=== PATIENT | female | born 1990 | race American Indian/Alaskan Native ===

== ENCOUNTER 2017-07-04 17:22 | Emergency (ER) | payer MEDICAID ==
[2017-07-04 19:04] LABS: Hematocrit 36.9 % (30.3-42.9); Hemoglobin 12.4 gm/dl (10.1-14.3); Mean Corpuscular HGB Conc 34 % (30-34); Mean Corpuscular Hemoglobin 30 pg (28-32); Mean Corpuscular Volume 91 fl (79-97); Platelet Count 306 K/mm3 (140-440); Red Blood Count 4.06 M/mm3 (3.65-5.03); Red Cell Distribution Width 14.3 % (13.2-15.2); White Blood Count 11.4 K/mm3 (4.5-11.0)
[2017-07-04 19:15] LABS: Bilirubin,Urine NEG (Negative); Blood,Urine NEG (Negative); Ketones,Urine NEG (Negative); Leukocyte Esterase,Urine SM (Negative); Mucus,Urine FEW /HPF; Nitrite,Urine NEG (Negative); Protein,Urine <15 mg/dL mg/dL (Negative); Urobilinogen,Urine < 2.0 mg/dL (<2.0)
[2017-07-04 19:17] LABS: Anion Gap 18 mmol/L; BUN/Creatinine Ratio 14; Blood Urea Nitrogen 13 mg/dL (7-17); Carbon Dioxide 25 mmol/L (22-30); Chloride 100.3 mmol/L (98-107); Glucose 81 mg/dL (65-100); Sodium 139 mmol/L (137-145)
[2017-07-04] MEDS ORDERED: TYLENOL PO ONE (22:06)
[2017-07-04] MEDS ORDERED: TYLENOL ONE (22:10)
--- NOTE | 2017-07-04 22:11 | Ultrasound Report ---
FINAL REPORT PROCEDURE: US OB < = 14 WEEKS FETUS TECHNIQUE: Real-time transabdominal sonography of the uterus, placenta, amniotic fluid, adnexa, and fetus was performed with image documentation. Measurements were obtained to determine age/size. M-mode Doppler was used to document heartbeat. CPT 65257 HISTORY: vaginal bleed,pain with COMPARISON: No prior studies are available for comparison. FINDINGS: Limited examination. There is an intrauterine fluid-filled sac-like structure which could be an early gestational sac. Mean sac diameter is 2.68 centimeters which would correspond to estimated gestational age is 7 weeks and 5 days and estimated date of delivery is 02/15/2018. No pole, yolk sac or cardiac activity is demonstrated. Followup is indicated. Uterus measures 7.8 x 4.6 by 4.7 centimeters. The ovaries are not identified. There is no free pelvic fluid. IMPRESSION: Possible early at 7 weeks and 5 days. No pole is demonstrated. Transvaginal ultrasound may be helpful.
--- NOTE | 2017-07-04 22:15 | Ultrasound Report ---
FINAL REPORT PROCEDURE: US OB TRANSVAGINAL TECHNIQUE: Real-time transvaginal sonography of the uterus, placenta, amniotic fluid, adnexa, and fetus was performed with image documentation. Measurements were obtained to determine age/size. M-mode Doppler was used to document heartbeat. CPT 16285 HISTORY: vaginal bleed,pain with COMPARISON: 07/04/2017 FINDINGS: CRL: 5.1mm, which corresponds to a gestational age of: 6weeks, 2 days. Yolk Sac: Normal. Embryonic Cardiac Activity: 109 beats per minute Gestational Sac: Mean sac diameter is 26.8 millimeters corresponding to estimated gestational age is 7 weeks and 5 days Right Ovary: Hemorrhagic corpus luteal cyst measuring 2.3 centimeters. Left Ovary: Normal. Estimated delivery date: 02/20/2018 Comment: Complete anatomic survey at 18-20 weeks suggested. IMPRESSION: 1. Single living intrauterine gestation at approximately 7 weeks 2. EDC by US 02/20/2018.
[2017-07-05] MEDS ORDERED: TYLENOL PO ONE (04:13)
--- NOTE | 2017-07-05 04:16 | Emergency Department Report ---
ED Back Pain/Injury HPI - General Chief Complaint: Back Pain/Injury Stated Complaint: PREG, BACK PAIN, SPOTTING Time Seen by Provider: 07/05/17 03:28 Source: patient Limitations: No Limitations - History of Present Illness Initial Comments: PT HAS H/O LOW ABACK PAIN AND MUSCLE SPASMS HER TODAY WITH THE SAME. PAIN IS IN THE SAME AREA WHERE IT ALWAYS IS. SHE IS 6 WEEKS PREGNANCT AND HAS NOT SEEN A DR YET, SHE EXPERIENCED SOME SPOTTING DAYS AGO BUT THAT HAS STOPPED. MD Complaint: back pain -: hour(s) (8 HRS AGO) Similar Symptoms Previously: Yes Place: home Severity: moderate Severity scale (0 -10): 5 Quality: dull, aching Consistency: constant Improves With: supine Worsens With: movement Context: turning/twisting, bending Associated Symptoms: denies other symptoms. denies: numbness, difficulty walking, difficulty urinating, constipation, headaches, abdominal pain, nausea/ vomiting - Related Data Allergies Allergy/AdvReac Type Severity Reaction Status Date / Time No Known Allergies Allergy Unverified 07/04/17 18:28 ED Review of Systems ROS: Stated complaint: PREG, BACK PAIN, SPOTTING Other details as noted in HPI Constitutional: denies: chills, fever Eyes: denies: eye pain, eye discharge, vision change ENT: denies: ear pain, throat pain Respiratory: denies: cough, shortness of breath, wheezing Cardiovascular: denies: chest pain, palpitations Endocrine: no symptoms reported Gastrointestinal: denies: abdominal pain, nausea, diarrhea Genitourinary: denies: urgency, dysuria, discharge Musculoskeletal: denies: back pain, joint swelling, arthralgia Skin: denies: rash, lesions Neurological: denies: headache, weakness, paresthesias Psychiatric: denies: anxiety, depression Hematological/Lymphatic: denies: easy bleeding, easy bruising ED Past Medical Hx - Past Medical History Hx Asthma: Yes Additional medical history: bronchitis - Social History Smoking Status: Never Smoker Substance Use Type: None ED Physical Exam - General Limitations: No Limitations General appearance: alert, in no apparent distress - Head Head exam: Present: atraumatic, normocephalic - Eye Eye exam: Present: normal appearance - ENT ENT exam: Present: mucous membranes moist - Neck Neck exam: Present: normal inspection - Respiratory Respiratory exam: Present: normal lung sounds bilaterally. Absent: respiratory distress - Cardiovascular Cardiovascular Exam: Present: regular rate, normal rhythm. Absent: systolic murmur, diastolic murmur, rubs, gallop - GI/Abdominal GI/Abdominal exam: Present: soft, normal bowel sounds - Extremities Exam Extremities exam: Present: normal inspection - Back Exam Back exam: Present: normal inspection - Neurological Exam Neurological exam: Present: alert, oriented X3 - Psychiatric Psychiatric exam: Present: normal affect, normal mood - Skin Skin exam: Present: warm, dry, intact, normal color. Absent: rash ED Course Vital Signs 07/04/17 07/04/17 07/05/17 18:24 22:49 03:31 Temperature 98.7 F 98.1 F Pulse Rate 111 H 102 H Respiratory 18 18 18 Rate Blood Pressure 155/72 142/79 Blood Pressure [Left] O2 Sat by Pulse 100 100 Oximetry 07/05/17 03:35 Temperature Pulse Rate 99 H Respiratory 18 Rate Blood Pressure Blood Pressure 122/65 [Left] O2 Sat by Pulse 99 Oximetry ED Medical Decision Making - Lab Data Result diagrams: 07/04/17 18:45 07/04/17 18:50 - Radiology Data Radiology results: report reviewed (US TANSVAGINAL/ABDOMINAL: SIUP,7 WEEKS AND 5 DAYS,,DOC 02/20/18 HR 109) - Medical Decision Making LABS ARE NEGATIVE, SHE HAS SIUP , URINE IS CONTAMINATED SO AI WILL CONSIDER THAT A DIRTY URINE. I WILL D/RODNEY WITH FOLLOWUP WITH HER Critical care attestation.: If time is entered above; I have spent that time in minutes in the direct care of this critically ill patient, excluding procedure time. ED Disposition Clinical Impression: Back pain Qualifiers: Back pain location: low back pain Chronicity: acute Back pain laterality: unspecified Sciatica presence: without sciatica Qualified Code(s): M54.5 - Low back pain Qualifiers: Weeks of gestation: less than 8 weeks Qualified Code(s): Z3A.01 - Less than 8 weeks gestation of Disposition: -01 TO HOME OR SELFCARE Is pt being admited?: No Does the pt Need Aspirin: No Condition: Stable Instructions: Low Back Strain (ED), Acute Low Back Pain (ED), (ED) Referrals: PRIMARY CARE, [Primary Care Provider] - 3-5 Days
[2017-07-05 05:01] VITALS: BP 114/60
== END 2017-07-05 05:01 | disposition home or self-care (01) ==
LOC: ED 17:22
DX: O26.891 Other specified pregnancy related conditions, first trimester (principal); M54.5 Low back pain; Z3A.00 Weeks of gestation of pregnancy not specified; J45.909 Unspecified asthma, uncomplicated
CPT/HCPCS: 36415; 76801; 76817; 80048; 81001; 84702; 85027; 86900; 86901